=== PATIENT | female | born 1995 | race Two or more races ===

== ENCOUNTER 2017-08-06 17:26 | Inpatient (IN) | payer OTHER ==
[~2017-08-06] VITALS: Ht 165.1 cm; Wt 105.6 kg
[2017-08-06 17:58] LABS: Basophils # (auto) 0 uL; Basophils % (auto) 0.5 % (0.0-2.0); Eosinophils # (auto) 0.1 uL; Hematocrit 45.9 % (36.0-46.0); Hemoglobin 15.7 g/dL (12.2-16.2); Lymphocytes # (auto) 1.4 uL; Lymphocytes % (auto) 15.4 % (10.0-50.0); Mean Corpuscular Hgb Conc. 34.2 g/dL (32.0-36.0); Mean Corpuscular Volume 90.8 fL (80.0-100.0); Monocytes # (auto) 0.7 uL; Monocytes % (auto) 7.6 % (0.0-12.0); Neutrophils # (auto) 6.9 uL; Neutrophils % (auto) 75.5 % (37.0-80.0); Nucleated Red Blood Cells % 0.1 %; Platelet Count (auto) 315 10^3/uL (140-450); Red Blood Cells 5.06 10^6/uL (4.0-5.20); Red Cell Distribution Width 12.7 % (11.8-14.3); White Blood Cell 9.2 10^3/uL (4.4-10.8)
[2017-08-06] MEDS ORDERED: PANTOPRAZOLE 40 MG/10 ML VIAL IV STA (18:11)
[2017-08-06] MEDS ORDERED: SODIUM CHLORIDE 0.9% 500 ML IVB ONE (18:11)
[2017-08-06] MEDS ORDERED: MORPHINE SULFATE 8mg/ml INJ SDV IV ONE (18:15)
[2017-08-06] MEDS ORDERED: ONDANSETRON HCL 4 MG/2 ML VIAL IV ONE (18:15)
[2017-08-06 18:23] LABS: Albumin 3.7 g/dL (3.4-5.0); BUN/Creatinine Ratio 17.7; Bilirubin, Total 0.7 mg/dL (0.2-1.0); Calcium 8.9 mg/dL (8.5-10.1); Magnesium 2.2 mg/dL (1.6-2.6); Potassium 3.8 mmol/L (3.5-5.1); Total Protein 7.5 g/dL (6.4-8.2)
[2017-08-06] MEDS ORDERED: ONDANSETRON HCL 4 MG/2 ML VIAL ONE (21:05)
[2017-08-06] MEDS: D5W/SOD CHL 0.45% 1,000 ML IV SCH (22:03)
[2017-08-06 22:10] VITALS: BP 113/74
[2017-08-06] MEDS: CLINDAMYCIN 600MG IV 50 ML IV SCH (22:23)
[2017-08-07] MEDS: CLINDAMYCIN 600MG IV 50 ML IV SCH ×3 (04:57→22:00)
[2017-08-07] MEDS: D5W/SOD CHL 0.45% 1,000 ML IV SCH ×4 (04:57→21:06)
[2017-08-07 05:00] VITALS: BP 105/66
[2017-08-07 06:34] LABS: Basophils # (auto) 0 uL; Basophils % (auto) 0.3 % (0.0-2.0); Eosinophils # (auto) 0.2 uL; Eosinophils % (auto) 3.1 % (0.0-7.0); Hematocrit 39.7 % (36.0-46.0); Hemoglobin 13.5 g/dL (12.2-16.2); Lymphocytes # (auto) 1.3 uL; Lymphocytes % (auto) 21.9 % (10.0-50.0); Mean Corpuscular Hemoglobin 31.5 pg (28.0-32.0); Mean Corpuscular Volume 92.7 fL (80.0-100.0); Monocytes # (auto) 0.6 uL; Monocytes % (auto) 11.2 % (0.0-12.0); Neutrophils # (auto) 3.7 uL; Neutrophils % (auto) 63.5 % (37.0-80.0); Nucleated Red Blood Cells % 0.1 %; Platelet Count (auto) 253 10^3/uL (140-450); Red Blood Cells 4.29 10^6/uL (4.0-5.20); Red Cell Distribution Width 13.3 % (11.8-14.3); White Blood Cell 5.8 10^3/uL (4.4-10.8)
[2017-08-07 06:52] LABS: Albumin 2.7 g/dL (3.4-5.0); BUN/Creatinine Ratio 15.5; Calcium 8.3 mg/dL (8.5-10.1); Potassium 3.9 mmol/L (3.5-5.1)
[2017-08-07 06:54] LABS: Bilirubin, Total 0.4 mg/dL (0.2-1.0); Total Protein 5.9 g/dL (6.4-8.2)
[2017-08-07 09:00] VITALS: BP 98/60
[2017-08-07] MEDS ORDERED: LEVOFLOXACIN 500MG 100 ML IV ONE (10:00)
[2017-08-07 10:25] LABS: Urine Bacteria NONE SEEN /hpf (None Seen); Urine Blood Negative /uL (Negative); Urine Mucus FEW (None Seen); Urine Specific Gravity 1.007 (1.001-1.035); Urine WBC <1 /hpf (0 - 5)
[2017-08-07 13:00] VITALS: BP 101/64
[2017-08-07] MEDS: MORPHINE SULFATE 8mg/ml INJ SDV IV PRN ×2 (14:11→20:56)
[2017-08-07] MEDS: ONDANSETRON HCL 4 MG/2 ML VIAL IV PRN ×2 (14:12→20:55)
[2017-08-07 14:38] LABS: INR 1.07 (0.9-1.15); Partial Thromboplastin Time 32.1 sec (23.78-33.04); Prothrombin Time 11.4 sec (9.27-12.13)
[2017-08-07 17:02] VITALS: BP 113/76
[2017-08-07 21:43] VITALS: BP 116/64
[2017-08-08 04:00] VITALS: BP 122/67
[2017-08-08] MEDS: CLINDAMYCIN 600MG IV 50 ML IV SCH ×3 (06:06→21:43)
[2017-08-08] MEDS: D5W/SOD CHL 0.45% 1,000 ML IV SCH ×3 (06:07→21:42)
[2017-08-08 08:00] VITALS: BP 111/47
[2017-08-08 11:00] LABS: BUN/Creatinine Ratio 4.5; Bilirubin, Total 0.3 mg/dL (0.2-1.0); Calcium 8.6 mg/dL (8.5-10.1); Potassium 3.8 mmol/L (3.5-5.1); Total Protein 6.5 g/dL (6.4-8.2)
[2017-08-08] MEDS ORDERED: LEVOFLOXACIN 500MG 100 ML IV ONE (12:00)
[2017-08-08 12:18] VITALS: BP 116/53
[2017-08-08 17:41] VITALS: BP 112/69
[2017-08-08 22:00] VITALS: BP 117/68
[2017-08-09 04:00] VITALS: BP 108/65
[2017-08-09] MEDS: D5W/SOD CHL 0.45% 1,000 ML IV SCH ×4 (04:06→23:05)
[2017-08-09] MEDS: CLINDAMYCIN 600MG IV 50 ML IV SCH ×3 (06:18→21:56)
[2017-08-09 06:38] LABS: Potassium 4.1 mmol/L (3.5-5.1)
[2017-08-09 06:47] LABS: Albumin 2.9 g/dL (3.4-5.0); BUN/Creatinine Ratio 4.3; Calcium 8.7 mg/dL (8.5-10.1)
[2017-08-09 06:50] LABS: Bilirubin, Total 0.5 mg/dL (0.2-1.0); Total Protein 6.5 g/dL (6.4-8.2)
[2017-08-09 09:00] VITALS: BP 114/78
[2017-08-09] MEDS: LEVOFLOXACIN 500MG 100 ML IV SCH (11:00)
[2017-08-09 13:00] VITALS: BP 106/74
[2017-08-09 18:10] VITALS: BP 108/67
[2017-08-09 22:00] VITALS: BP 126/66
[2017-08-10 05:00] VITALS: BP 124/66
[2017-08-10] MEDS: D5W/SOD CHL 0.45% 1,000 ML IV SCH ×2 (06:12→14:48)
[2017-08-10] MEDS: CLINDAMYCIN 600MG IV 50 ML IV SCH ×3 (06:27→21:42)
[2017-08-10 07:05] LABS: Basophils # (auto) 0 uL; Basophils % (auto) 0.5 % (0.0-2.0); Eosinophils # (auto) 0.2 uL; Eosinophils % (auto) 4.3 % (0.0-7.0); Hematocrit 43.3 % (36.0-46.0); Hemoglobin 15.1 g/dL (12.2-16.2); Lymphocytes # (auto) 1.5 uL; Lymphocytes % (auto) 35.6 % (10.0-50.0); Mean Corpuscular Hemoglobin 31.3 pg (28.0-32.0); Mean Corpuscular Hgb Conc. 34.7 g/dL (32.0-36.0); Monocytes # (auto) 0.4 uL; Monocytes % (auto) 9.6 % (0.0-12.0); Neutrophils # (auto) 2.1 uL; Nucleated Red Blood Cells % 0.1 %; Platelet Count (auto) 254 10^3/uL (140-450); Red Blood Cells 4.82 10^6/uL (4.0-5.20); Red Cell Distribution Width 13.2 % (11.8-14.3); White Blood Cell 4.1 10^3/uL (4.4-10.8)
[2017-08-10 07:24] LABS: Potassium 3.8 mmol/L (3.5-5.1)
[2017-08-10 07:37] LABS: BUN/Creatinine Ratio 9.2; Calcium 8.7 mg/dL (8.5-10.1)
[2017-08-10 07:38] LABS: Bilirubin, Total 0.5 mg/dL (0.2-1.0); Total Protein 6.9 g/dL (6.4-8.2)
[2017-08-10] MEDS ORDERED: POVIDONE IODINE 10 % TOPICAL OINT 30GM TOP ONE (08:18)
[2017-08-10] MEDS ORDERED: ceFAZolin 1GM/100ML 100 ML IV ONE (08:20)
[2017-08-10] MEDS ORDERED: NEOSTIGMINE 1 MG/ML INJ (10mg/10ML VIAL) IV ONE (08:23)
[2017-08-10] MEDS ORDERED: GLYCOPYRROLATE 0.2 MG/ML 1ML VIAL IV ONE (08:23)
[2017-08-10] MEDS ORDERED: fentaNYL CITRATE 5 ML ONE (08:26)
[2017-08-10] MEDS ORDERED: MIDAZOLAM HCL 1MG/1ML-2 ML VIAL ONE (08:26)
[2017-08-10] MEDS ORDERED: ROCURONIUM 10MG/ML 10ML VIAL IV ONE (08:27)
[2017-08-10] MEDS ORDERED: SUCCINYLCHOLINE CHLORIDE 20 MG/ML 10ML VIAL IV ONE (08:28)
[2017-08-10] MEDS ORDERED: PROPOFOL 10 MG/ML 20 ML IV ONE (08:39)
[2017-08-10 09:08] VITALS: BP 114/78
[2017-08-10] MEDS ORDERED: ONDANSETRON HCL 4 MG/2 ML VIAL IV ONE (09:30)
[2017-08-10] MEDS: HYDROmorphone HCL 2 MG/ML VL IV PRN ×3 (09:30→10:00)
[2017-08-10] MEDS ORDERED: hydrALAZINE HCL 20 MG/ML VL IV PRN (09:30)
[2017-08-10] MEDS ORDERED: ePHEDrine SULFATE 50 MG/ML AMP IV PRN (09:30)
[2017-08-10] MEDS: ONDANSETRON HCL 4 MG/2 ML VIAL IV PRN (09:30)
[2017-08-10] MEDS ORDERED: HYDROmorphone HCL 2 MG/ML VL ONE (09:30)
[2017-08-10] MEDS ORDERED: ONDANSETRON HCL 4 MG/2 ML VIAL ONE (09:30)
[2017-08-10] MEDS: LEVOFLOXACIN 500MG 100 ML IV SCH (10:00)
[2017-08-10] MEDS: MORPHINE SULFATE 4 MG/ML SYR/VIAL IV PRN ×2 (12:36→17:30)
[2017-08-10 12:53] VITALS: BP 129/71
[2017-08-10 17:00] VITALS: BP 132/73
[2017-08-10 22:00] VITALS: BP 114/77
[2017-08-11] MEDS: CLINDAMYCIN 600MG IV 50 ML IV SCH ×2 (04:59→14:00)
[2017-08-11 08:00] VITALS: BP 120/61
[2017-08-11] MEDS ORDERED: LEVOFLOXACIN 500MG 100 ML IV SCH (10:00)
[2017-08-11 12:00] VITALS: BP 108/71
== END 2017-08-11 15:30 | DRG 419 ==
LOC: ER 17:30 → EEVIPCON 17:30 → TELE 17:31 → TELE-EAST 22:10 → EAST 08-07 00:10
PROVIDERS: ADMIT Internal Medicine; ATTEND Internal Medicine
PROC: 0FT44ZZ Resection of Gallbladder, Percutaneous Endoscopic Approach (ICD-10-PCS; principal; 2017-08-10 08:23)
DX: K80.10 Calculus of gallbladder with chronic cholecystitis without obstruction (principal); E66.01 Morbid (severe) obesity due to excess calories; E11.9 Type 2 diabetes mellitus without complications; K83.8 Other specified diseases of biliary tract; I10 Essential (primary) hypertension; Z68.54 Body mass index [BMI] pediatric, 95th percentile for age to less than 120% of the 95th percentile for age
CPT/HCPCS: 36415; 74181; 76705; 80053; 81001; 82150; 82247; 83690; 83735; 84702; 85025; 85610; 85730; 86850; 86900; 86901; 87040; 87081; 94761; 96361; 96374; 96375; C9113; J0330; J0690; J1956; J2250; J2270; J2405; J2704; J3490; J7042